=== PATIENT | female | born 1995 | race Caucasian/White ===

== ENCOUNTER 2016-07-31 00:50 | Inpatient (IN) | payer MEDICAID ==
[~2016-07-31] VITALS: Ht 172.7 cm; Wt 78.4 kg
[2016-07-31] VITALS (16 sets, daily range): BP systolic 104–123; BP diastolic 53–80; PULSE 74–106; RESP 12–25; Ht 172.7 cm; Wt 78.4 kg
[2016-07-31] MEDS ORDERED: SOD CHLORIDE 0.9% 1,000 ML IV STA (02:35)
--- NOTE | 2016-07-31 03:07 | ERD ---
ER Documentation Chief Complaint Date/Time DATE: 07/31/16 TIME: 03:04 Chief Complaint Pt reports took oral pills 4 weeks ago and has going through 1 pad an hour HPI 20-year-old female presents here in emergency department for complaints of vaginal bleeding for almost 4 weeks now, patient took oral pills on July 01, was bleeding heavily afterwards, patient was seen again in [facility], another pill was given to help with removal of further of the clots , she took the medication, she was not bleeding afterwards, she followed up with excellence consultant, patient was told continuously have more retained products, she was recommended to have dilatation and curettage, when following up in another gynecology clinic that she was referred to, the excellence consultant specialist told her that she does not need dilatation and curettage, patient continues to have the bleeding, soaks 10 pads per day, one per hour. Patient is complaining of pelvic pain and cramping pain, for/10 scale, accompanying the vaginal bleeding, patient feels weak and dizzy at times. ROS All systems reviewed and are negative except as per history of present illness. Medications Home Meds Reported Medications [none] Unknown Strength No Conflict Check 07/31/16 Allergies Allergies: Coded Allergies: No Known Allergy (Unverified , 07/31/16) PMhx/Soc Medical and Surgical Hx: pt denies Medical Hx, pt denies Surgical Hx History of Surgery: No Anesthesia Reaction: No Hx Neurological Disorder: No Hx Respiratory Disorders: No Hx Cardiac Disorders: No Hx Psychiatric Problems: No Hx Miscellaneous Medical Probl: No Hx Alcohol Use: No Hx Substance Use: No Hx Tobacco Use: No Smoking Status: Never smoker FmHx Family History: No coronary disease, No diabetes, No other Physical Exam Vitals Vital Signs Date Time Temp Pulse Resp B/P Pulse Ox O2 Delivery O2 Flow Rate FiO2 07/31/16 00:53 98.1 94 18 125/58 100 Physical Exam GENERAL: The patient is well developed and appropriate for usual state of health, in no apparent distress. Patient is pale. CHEST: Clear to auscultation bilaterally. There are no rales, wheezes or rhonchi. HEART: Regular rate and rhythm. No murmurs, clicks, rubs or gallops. No S3 or S4. ABDOMEN: Soft, nontender and nondistended. Good bowel sounds. No rebound or guarding. No gross peritonitis. No gross organomegaly or masses. No Johns sign or McBurney point tenderness. BACK: No midline or flank tenderness. EXTREMITIES: Equal pulses bilaterally. There is no peripheral clubbing, cyanosis or edema. No focal swelling or erythema. Full range of motion. Grossly neurovascularly intact. NEURO: Alert and oriented. Cranial nerves 2-12 intact. Motor strength in all 4 extremities with 5/5 strength. Sensation grossly intact. Normal speech and gait. SKIN: There is no apparent rash or petechia. The skin is warm and dry. HEMATOLOGIC AND LYMPHATIC: There is no evidence of excessive bruising or lymphedema. No gross cervical, axillary, or inguinal lymphadenopathy. Result Diagram: 07/31/163 Results 24 hrs Laboratory Tests Test 07/31/16 03:13 Activated Partial Thromboplast Time 27.2Sec Basophils # Pending Basophils % Pending Beta HCG, Quantitative 2367.1mIU/ml Eosinophils # Pending Eosinophils % Pending Hematocrit 20.5% Hemoglobin 6.9g/dl INR International Normalized Ratio 1.05 Lymphocytes # Pending Lymphocytes % Pending Mean Corpuscular Hemoglobin 29.7pg Mean Corpuscular Hemoglobin Concent 33.7g/dl Mean Corpuscular Volume 88.7fl Mean Platelet Volume 11.1fl Monocytes # Pending Monocytes % Pending Neutrophils # Pending Neutrophils % Pending Nucleated Red Blood Cells # Pending Nucleated Red Blood Cells % Pending Platelet Count 37356^3/UL Prothrombin Time 13.7Sec Prothrombin Time Ratio 1.1 Red Blood Count 2.3110^6/ul Red Cell Distribution Width 12.1% Urine Bacteria FEW Urine Bilirubin NEGATIVE Urine Clarity CLOUDY Urine Color YELLOW Urine Glucose NEGATIVE% Urine Hemoglobin 3+ Urine Ketones NEGATIVE Urine Leukocyte Esterase 2+ Urine Microscopic RBC >50/HPF Urine Microscopic WBC >50/HPF Urine Mucus FEW Urine Nitrite NEGATIVE Urine Specific [place] >=1.030 Urine Squamous Epithelial Cells MANY Urine Total Protein 1+ Urine Urobilinogen 1.0 E.U./dL Urine pH 5.5 White Blood Count 8.510^3/ul Current Medications Medications (Trade) Dose Ordered Sig/Berkley Route PRN Reason Start Time Stop Time Status Last Admin Dose Admin Sodium Chloride (NS) 1,000 ml @ 1,000 mls/hr Q1H STAT IV 07/31/16 02:35 07/31/16 03:34 DC 07/31/16 03:17 Normal saline IV bolus was given here in emergency department for rehydration, patient tolerated IV fluids. PROCEDURE: Pelvic ultrasound, limited. CLINICAL INDICATION: Vaginal bleeding. TECHNIQUE: Multiple sonographic images of the pelvis were obtained utilizing a transabdominal technique. The images were reviewed on a PACS workstation. COMPARISON: None. FINDINGS: The uterus is visualized and measures 8.2 x 4.3 x 5.6 cm. No abnormal uterine mass is identified. The endometrial echo complex is thickened and heterogeneous measuring 1.8 cm with color-flow suggestive of retained products. There is no evidence for free fluid. The right ovary has a normal echotexture and measures 3.5 x 1.6 x 2.6 cm. The left ovary has a normal echotexture and measures 3.0 x 1.6 x 1.9 cm. There is normal flow to both ovaries. No adnexal masses are identified. IMPRESSION: Thickened and heterogeneous endometrium with color-flow suggestive of retained products. Follow-up is recommended. .Blake Crane MD, MD Date Time Electronically viewed and signed by .Blake Crane MD, MD on 07/31/2016 03:19 .T/ CC: SINDHU RODAS NP I discussed this case with gynecology specialist, Dr. Guzman, with the patient case, will admit the patient, she ordered for type and cross and transfuse 1 unit of packed RBC, patient will be admitted to medical surgical floor for further management and treatment. Procedures/MDM Medical Decision Making: Patients vaginal bleeding is most likely consistent of the retained products of conception, patient has symptomatic anemia, will be treated with blood transfusion, further management and treatment is necessary, patient will be admitted to the hospital for this. Dr. Guzman accepted patient for this. Departure Diagnosis: Primary Impression: Retained products of conception Additional Impression: Symptomatic anemia Condition: Fair SINDHU RODAS NP Jul 31, 2016 03:07
--- NOTE | 2016-07-31 03:19 | RADRPT ---
PROCEDURE: Pelvic ultrasound, limited. CLINICAL INDICATION: Vaginal bleeding. TECHNIQUE: Multiple sonographic images of the pelvis were obtained utilizing a transabdominal stefano hnique. The images were reviewed on a PACS workstation. COMPARISON: None. FINDINGS: The uterus is visualized and measures 8.2 x 4.3 x 5.6 cm. No abnormal uterine mass is identified. T he endometrial echo complex is thickened and heterogeneous measuring 1.8 cm with color-flow suggesti ve of retained products. There is no evidence for free fluid. The right ovary has a normal echotexture and measures 3.5 x 1. 6 x 2.6 cm. The left ovary has a normal echotexture and measures 3.0 x 1.6 x 1.9 cm. There is norm al flow to both ovaries. No adnexal masses are identified. IMPRESSION: Thickened and heterogeneous endometrium with color-flow suggestive of retained products. Follow-up is recommended. .Blake Crane MD, MD Date Time Electronically viewed and signed by .Blake Crane MD, on 07/31/2016 03:19 .T/
[2016-07-31 03:29] LABS: ADD UMIC YES; URINE BILIRUBIN (Dip) NEGATIVE (NEGATIVE); URINE BLOOD (Dip) 3+ (NEGATIVE); URINE COLOR YELLOW (YELLOW); URINE GLUCOSE (Dip) NEGATIVE (NEGATIVE); URINE KETONES (Dip) NEGATIVE (NEGATIVE); URINE NITRITE (Dip) NEGATIVE (NEGATIVE); URINE TOTAL PROTEIN (Dip) 1+ (NEGATIVE); URINE UROBILINOGEN (Dip) 1.0 E.U./dL (0.1-1.0)
[2016-07-31 03:41] LABS: SQUAMOUS EPITHELIAL CELL,UR MANY; URINE LEUKOCYTE ESTERASE (Dip) 2+ (NEGATIVE); URINE RBCS >50 /HPF (0)
[2016-07-31 03:42] LABS: BACTERIA,URINE FEW; MUCUS,URINE FEW
[2016-07-31 04:28] LABS: INR 1.05; PARTIAL THROMBOPLASTIN TIME 27.2 Sec (25.0-35.0); PROTIME 13.7 Sec (12.2-14.2); PT RATIO 1.1
[2016-07-31 04:41] LABS: RED BLOOD COUNT 2.31 10^6/ul (4.20-5.40)
[2016-07-31 04:44] LABS: HEMATOCRIT 20.5 % (37.0-47.0); HEMOGLOBIN 6.9 g/dl (12.0-16.0); MEAN CORPUSCULAR HEMOGLOBIN 29.7 pg (29.0-33.0); MEAN CORPUSCULAR HGB CONC 33.7 g/dl (32.0-37.0); MEAN CORPUSCULAR VOLUME 88.7 fl (72.0-104.0); MEAN PLATELET VOLUME 11.1 fl (7.4-10.4); PLATELET COUNT 273 10^3/UL (140-440); RED CELL DISTRIBUTION WIDTH 12.1 % (11.5-14.5)
[2016-07-31] MEDS ORDERED: CEFAZOLIN 1 GM INJ ONE (07:00)
[2016-07-31 09:00] LABS: MONOCYTE # 0.2 10^3/ul (0.3-0.9); NEUTROPHIL # 6.4 10^3/ul (1.6-7.5)
[2016-07-31 09:04] LABS: POLYCHROMASIA 1+
[2016-07-31] MEDS ORDERED: CEFAZOLIN 2 GM/50 ML (PMX) 50 ML IVPB ONE (10:00)
[2016-07-31] MEDS ORDERED: LACTATED RINGER'S 1,000 ML IV SCH (10:00)
[2016-07-31] MEDS ORDERED: MIDAZOLAM 1 MG/ML 2 ML INJ ONE (12:55)
[2016-07-31] MEDS ORDERED: PROPOFOL 20 ML ONE (12:55)
[2016-07-31] MEDS ORDERED: FENTAnyl 50 MCG/ML VIAL ONE (12:56)
--- NOTE | 2016-07-31 13:07 | PREOPHP ---
DATE OF ADMISSION: 07/31/2016 INDICATIONS: The patient is a 20-year-old G1, P0, whose last menstrual period was approximately 8 w eeks ago. This patient is status post medical on 07/01/2016. On 07/08/2016, the patient re turns complaining of increased vaginal bleeding for the last four weeks, soaking one pad per hour an d complaining of dizziness and tiredness. PAST MEDICAL HISTORY: None. PAST SURGICAL HISTORY: None. MEDICATIONS: None. PHYSICAL EXAMINATION: VITAL SIGNS: Stable. HEART: Heart regular rhythm. CHEST: Clear to auscultation bilaterally. ABDOMEN: Soft, nontender. No rebound or guarding. PELVIC: Cervical exam done with some minimal bleeding noted in the vagina. IMAGING: Shows thickened endometrium consistent with retained products of conception. LABORATORY: Hemoglobin is 6.9. HCG is 2300. Coags are within normal limits. Blood type is A positi ve. ASSESSMENT: ____ post medical with retained products of conception. Patient will be conse nted for dilatation and curettage. Risks and benefits discussed. The risk of infection, bleeding, damage to organs, possibility of blo od transfusion all discussed with the patient. Patient understands and consents to procedure. Dictated By: MERCEDEZ PACHECO MD /NTS Conf#: [id number] DID#: [id number]
[2016-07-31] MEDS ORDERED: METOCLOPRAMIDE 10 MG INJ ONE (13:23)
[2016-07-31] MEDS ORDERED: ONDANSETRON 4 MG INJ ONE (13:23)
[2016-07-31] MEDS ORDERED: DEXAMETHASONE 4 MG/ML 1 ML INJ ONE (13:24)
[2016-07-31] MEDS ORDERED: KETOROLAC 30 MG INJ ONE (13:24)
[2016-07-31] MEDS ORDERED: ALBUMIN HUMAN 5% 250 ML IV PRN (13:30)
[2016-07-31] MEDS ORDERED: ONDANSETRON 4 MG INJ IV PRN (13:30)
[2016-07-31] MEDS ORDERED: DIPHENHYDRAMINE 50 MG INJ IV PRN (13:30)
[2016-07-31] MEDS ORDERED: HYDROmorphONE (0.2 MG/ML) 10ML SYG IV PRN ×3 (13:30)
[2016-07-31] MEDS ORDERED: MEPERIDINE 25 MG INJ IV PRN (13:30)
[2016-07-31] MEDS ORDERED: morphine (1 MG/ML) 10ML SYRINGE IV PRN ×3 (13:30)
[2016-07-31] MEDS ORDERED: EPHEDrine SULFATE 50 MG/5 ML SYG IV PRN (13:30)
[2016-07-31] MEDS ORDERED: HYDROCODONE/APAP (5/325) TAB PO PRN ×2 (14:00)
[2016-07-31] MEDS ORDERED: IBUPROFEN 600 MG TAB PO PRN (14:00)
[2016-07-31] MEDS: LACTATED RINGER'S 1,000 ML IV SCH ×2 (14:00→22:00)
--- NOTE | 2016-07-31 16:14 | OPR ---
DATE OF OPERATION: 07/31/2016 PREOPERATIVE DIAGNOSES: Incomplete spontaneous . POSTOPERATIVE DIAGNOSIS: Incomplete spontaneous . OPERATION PERFORMED: Dilation and curettage. SPECIMENS: Products of conception. COMPLICATIONS: None. ESTIMATED BLOOD LOSS: Minimal. INDICATIONS: The patient is a 20-year-old G1, P0 who presented to the emergency room complaining of vaginal bleeding. Patient had a medical therapeutic approximately a month ago but is the last 4 weeks has been bleeding. The patient had a hemoglobin of 6.9. Ultrasound showed probable re tained products of conception. At this point, the patient presented for a dilation and curettage. Risks and benefits discussed. The risk of infection, bleeding, damage to organs, possibility of blo od transfusion all discussed with the patient. Patient understood the risks and consented to the pr ocedure. DESCRIPTION OF PROCEDURE: The patient was taken to the operating room where general anesthesia was found to be adequate. Patient was then prepped, draped in normal sterile fashion. ID was confirmed . Smoot speculum placed in the vagina. The cervix was grasped with a ring forceps and the uterus was sounded to approximately 8 to 9 weeks in size. A gentle sharp curet was done. A size curved 8 -Iranian tip curet was placed inside and a suction D and C was done again. Next, another gentle jagdish p curettage was performed. Tissue was obtained. There was minimal bleeding. Uterus was firm. All lap and needle counts correct x2. Patient tolerated procedure well. Patient stable to recovery. Dictated By: MERCEDEZ PACHECO MD /NTS Conf#: [id number] DID#: [id number]
[2016-07-31 17:08] LABS: WHITE BLOOD COUNT 8.5 10^3/ul (4.8-10.8)
[2016-07-31 18:23] LABS: EOSINOPHILS % 0.1 % (0.0-7.0); HEMATOCRIT 23.4 % (37.0-47.0); HEMOGLOBIN 7.9 g/dl (12.0-16.0); LYMPHOCYTES # 0.7 10^3/ul (0.8-2.9); MEAN CORPUSCULAR HEMOGLOBIN 29.5 pg (29.0-33.0); MEAN CORPUSCULAR VOLUME 86.7 fl (72.0-104.0); MEAN PLATELET VOLUME 8.6 fl (7.4-10.4); MONOCYTE # 0.1 10^3/ul (0.3-0.9); MONOCYTES % 1.3 % (0.0-13.0); NEUTROPHIL # 7.6 10^3/ul (1.6-7.5); NEUTROPHILS % 90.6 % (30.0-74.0); PLATELET COUNT 230 10^3/UL (140-440); RED CELL DISTRIBUTION WIDTH 12.9 % (11.5-14.5); UNCORRECTED WBC 8.4 10^3/ul (4.8-10.8); WHITE BLOOD COUNT 8.4 10^3/ul (4.8-10.8)
[2016-07-31 18:29] LABS: CONDITION 1; LH ANALYZER COMMENTS 1
[2016-07-31 19:25] LABS: PLATELET ESTIMATE PLT APPEAR ADEQUATE
[2016-08-01] VITALS: BP 115/59; PULSE 98; RESP 19
[2016-08-01 05:38] VITALS: BP 96/52; PULSE 77; RESP 18
[2016-08-01] MEDS: LACTATED RINGER'S 1,000 ML IV SCH ×2 (06:00→14:00)
[2016-08-01 06:57] LABS: BASOPHILS % 0.2 % (0.0-2.0); EOSINOPHILS % 0.1 % (0.0-7.0); HEMATOCRIT 19.5 % (37.0-47.0); LYMPHOCYTES # 1.4 10^3/ul (0.8-2.9); LYMPHOCYTES % 13.9 % (18.0-55.0); MEAN CORPUSCULAR HEMOGLOBIN 29.5 pg (29.0-33.0); MEAN CORPUSCULAR HGB CONC 33.7 g/dl (32.0-37.0); MEAN CORPUSCULAR VOLUME 87.7 fl (72.0-104.0); MEAN PLATELET VOLUME 9.4 fl (7.4-10.4); MONOCYTE # 0.6 10^3/ul (0.3-0.9); MONOCYTES % 5.7 % (0.0-13.0); NEUTROPHIL # 8.3 10^3/ul (1.6-7.5); NEUTROPHILS % 80.1 % (30.0-74.0); PLATELET COUNT 212 10^3/UL (140-440); RED BLOOD COUNT 2.23 10^6/ul (4.20-5.40); RED CELL DISTRIBUTION WIDTH 12.5 % (11.5-14.5); UNCORRECTED WBC 10.4 10^3/ul (4.8-10.8); WHITE BLOOD COUNT 10.4 10^3/ul (4.8-10.8)
[2016-08-01 07:31] LABS: CONDITION 1; LH ANALYZER COMMENTS 1
[2016-08-01 07:33] LABS: HEMOGLOBIN 6.6 g/dl (12.0-16.0)
[2016-08-01 07:49] VITALS: BP 96/53; RESP 15
--- NOTE | 2016-08-01 10:46 | DS ---
Date/Time of Note Date/Time of Note DATE: 08/01/16 TIME: 10:35 Discharge Summary Admission/Discharge Info Admit Date/Time Jul 31, 2016 at 04:53 Discharge Date/Time August 01, 2016 Discharge summary This patient is a 20 years old 1 para 0 who was about 8 weeks and about 4 weeks ago she had a therapeutic in a clinic. But she continue having vaginal bleeding every day for 4 weeks post medical . She came in emergency room or [facility] yesterday due to have heavy bleeding. Ultrasound showed thickening of endometrial structure. In the emergency room her hemoglobin was 6.9. Due to continuation of the vaginal bleeding she was taken to the operating room and a dilatation and curettage was performed. On the first day of post D&C which is today her hemoglobin n was 6.7 she already received 1 unit of packed . We will give her another unit of packed cell and check her H&H .If the result is satisfactory hemoglobin above 7 we will discharge her today. A prescription is written for ferrous sulfate 325 mg tablets to be taken twice a day. And to continue post op care with her pie chef. On exam today her vital signs are stable. Abdomen is soft. No pelvic tenderness. As I mentioned we will wait for the result of the H&H bofore discharging her. End of dictation thank you Laboratory Tests Test 07/31/16 17:55 08/01/16 06:09 Basophils # 0.010^3/ul 0.010^3/ul Basophils % 0.0% 0.2% Blood Morphology Comment Differential Comment AUTO w/SCAN Eosinophils # 0.010^3/ul 0.010^3/ul Eosinophils % 0.1% 0.1% Hematocrit 23.4% 19.5% Hemoglobin 7.9g/dl 6.6g/dl Lymphocytes # 0.710^3/ul 1.410^3/ul Lymphocytes % 8.0% 13.9% Mean Corpuscular Hemoglobin 29.5pg 29.5pg Mean Corpuscular Hemoglobin Concent 34.0g/dl 33.7g/dl Mean Corpuscular Volume 86.7fl 87.7fl Mean Platelet Volume 8.6fl 9.4fl Monocytes # 0.110^3/ul 0.610^3/ul Monocytes % 1.3% 5.7% Neutrophils # 7.610^3/ul 8.310^3/ul Neutrophils % 90.6% 80.1% Nucleated Red Blood Cells # 0.010^3/ul 0.010^3/ul Nucleated Red Blood Cells % 0.0/100WBC 0.0/100WBC Platelet Count 86917^3/UL 98510^3/UL Platelet Estimate PLT APPEAR ADEQUATE Red Blood Count 2.7010^6/ul 2.2310^6/ul Red Cell Distribution Width 12.9% 12.5% White Blood Count 8.410^3/ul 10.410^3/ul Current Medications Medications (Trade) Dose Ordered Sig/Berkley Route PRN Reason Start Time Stop Time Status Last Admin Dose Admin Sodium Chloride 1,000 ml @ 1,000 mls/hr Q1H STAT IV 07/31/16 02:35 07/31/16 03:34 DC 07/31/16 03:17 Lactated Ringer's 1,000 ml @ 125 mls/hr Q8H IV 07/31/16 10:00 07/31/16 13:58 DC 07/31/16 11:06 Cefazolin Sodium/ Dextrose (Ancef 2 Gm/50 ml (Pmx)) 50 ml @ 100 mls/hr ONCE ONCE IVPB 07/31/16 10:00 07/31/16 10:29 DC Morphine Sulfate (morphine (REC)) 2 mg PACU ORDER PRN IV MILD PAIN LEVEL 1-3 07/31/16 13:30 07/31/16 18:00 DC 07/31/16 14:15 Morphine Sulfate (morphine (REC)) 4 mg PACU ORDER PRN IV MODERATE PAIN LEVEL 4-6 07/31/16 13:30 07/31/16 18:00 DC Morphine Sulfate (morphine (REC)) 6 mg PACU ORDER PRN IV SEVERE PAIN LEVEL 7-10 07/31/16 13:30 07/31/16 18:00 DC Hydromorphone HCl (Dilaudid (Rec)) 0.2 mg PACU ORDER PRN IV MILD PAIN LEVEL 1-3 07/31/16 13:30 07/31/16 18:00 DC Hydromorphone HCl (Dilaudid (Rec)) 0.4 mg PACU ORDER PRN IV MODERATE PAIN LEVEL 4-6 07/31/16 13:30 07/31/16 18:00 DC Hydromorphone HCl (Dilaudid (Rec)) 0.6 mg PACU ORDER PRN IV SEVERE PAIN LEVEL 7-10 07/31/16 13:30 07/31/16 18:00 DC Ondansetron HCl (Zofran Inj) 4 mg PACU ORDER PRN IV NAUSEA AND/OR VOMITING 07/31/16 13:30 07/31/16 18:00 DC 07/31/16 14:15 Ephedrine Sulfate 5 mg 5 mg PACU ORDER PRN IV MAP LESS THAN 60 07/31/16 13:30 07/31/16 18:00 DC Albumin Human 250 ml @ 750 mls/hr PACU ORDER PRN IV SBP LESS THAN 90 07/31/16 13:30 07/31/16 18:00 DC Meperidine HCl (Demerol) 25 mg PACU ORDER PRN IV POST-OP RIGORS 07/31/16 13:30 07/31/16 18:00 DC 07/31/16 14:14 Diphenhydramine HCl 25 mg 25 mg PACU ORDER PRN IV PRURITUS 07/31/16 13:30 07/31/16 18:00 DC Lactated Ringer's (Lr) 1,000 ml @ 125 mls/hr Q8H IV 07/31/16 14:00 Ibuprofen (Motrin) 600 mg Q6H PRN PO PAIN 07/31/16 14:00 Acetaminophen/ Hydrocodone Bitart (Lamona (5/325)) 1 tab Q4H PRN PO PAIN 07/31/16 14:00 Acetaminophen/ Hydrocodone Bitart 2 tab 2 tab Q4H PRN PO PAIN 07/31/16 14:00 Propofol (Diprivan) 20 ml @ ud STK-MED ONCE .ROUTE 07/31/16 12:55 07/31/16 20:05 DC Midazolam HCl (Versed) 2 mg STK-MED ONCE .ROUTE 07/31/16 12:55 07/31/16 20:05 DC Fentanyl (Sublimaze) 100 mcg STK-MED ONCE .ROUTE 07/31/16 12:56 07/31/16 20:05 DC Ondansetron HCl (Zofran Inj) 4 mg STK-MED ONCE .ROUTE 07/31/16 13:23 07/31/16 20:06 DC Metoclopramide HCl (Reglan) 10 mg STK-MED ONCE .ROUTE 07/31/16 13:23 07/31/16 20:06 DC Ketorolac Tromethamine (Toradol) 30 mg STK-MED ONCE .ROUTE 07/31/16 13:24 07/31/16 20:06 DC Dexamethasone (Decadron) 4 mg STK-MED ONCE .ROUTE 07/31/16 13:24 07/31/16 20:06 DC Final Diagnosis Final diagnosis. Post medical retained products of conception. Vaginal bleeding and secondary anemia Hospital Course Dilatation and curettage Home Meds Discontinued Reported Medications [none] Unknown Strength No Conflict Check 07/31/16 Pending Labs Laboratory Tests Test 07/31/16 17:55 08/01/16 06:09 Basophils # 0.010^3/ul (0.0-0.1) 0.010^3/ul (0.0-0.1) Basophils % 0.0% (0.0-2.0) 0.2% (0.0-2.0) Blood Morphology Comment Differential Comment AUTO w/SCAN Eosinophils # 0.010^3/ul (0.0-0.5) 0.010^3/ul (0.0-0.5) Eosinophils % 0.1% (0.0-7.0) 0.1% (0.0-7.0) Hematocrit 23.4% (37.0-47.0) 19.5% (37.0-47.0) Hemoglobin 7.9g/dl (12.0-16.0) 6.6g/dl (12.0-16.0) Lymphocytes # 0.710^3/ul (0.8-2.9) 1.410^3/ul (0.8-2.9) Lymphocytes % 8.0% (18.0-55.0) 13.9% (18.0-55.0) Mean Corpuscular Hemoglobin 29.5pg (29.0-33.0) 29.5pg (29.0-33.0) Mean Corpuscular Hemoglobin Concent 34.0g/dl (32.0-37.0) 33.7g/dl (32.0-37.0) Mean Corpuscular Volume 86.7fl (72.0-104.0) 87.7fl (72.0-104.0) Mean Platelet Volume 8.6fl (7.4-10.4) 9.4fl (7.4-10.4) Monocytes # 0.110^3/ul (0.3-0.9) 0.610^3/ul (0.3-0.9) Monocytes % 1.3% (0.0-13.0) 5.7% (0.0-13.0) Neutrophils # 7.610^3/ul (1.6-7.5) 8.310^3/ul (1.6-7.5) Neutrophils % 90.6% (30.0-74.0) 80.1% (30.0-74.0) Nucleated Red Blood Cells # 0.010^3/ul (0.0-0.0) 0.010^3/ul (0.0-0.0) Nucleated Red Blood Cells % 0.0/100WBC (0.0-0.0) 0.0/100WBC (0.0-0.0) Platelet Count 38905^3/UL (140-440) 87477^3/UL (140-440) Platelet Estimate PLT APPEAR ADEQUATE Red Blood Count 2.7010^6/ul (4.20-5.40) 2.2310^6/ul (4.20-5.40) Red Cell Distribution Width 12.9% (11.5-14.5) 12.5% (11.5-14.5) White Blood Count 8.410^3/ul (4.8-10.8) 10.410^3/ul (4.8-10.8) SHONA SLOAN MD Aug 01, 2016 10:45
[2016-08-01 15:25] LABS: HEMOGLOBIN 7.4 g/dl (12.0-16.0); MEAN CORPUSCULAR HEMOGLOBIN 29.2 pg (29.0-33.0); MEAN CORPUSCULAR HGB CONC 33.4 g/dl (32.0-37.0); MEAN CORPUSCULAR VOLUME 87.6 fl (72.0-104.0); MEAN PLATELET VOLUME 9.1 fl (7.4-10.4); PLATELET COUNT 193 10^3/UL (140-440); RED BLOOD COUNT 2.52 10^6/ul (4.20-5.40); RED CELL DISTRIBUTION WIDTH 12.9 % (11.5-14.5); UNCORRECTED WBC 8.5 10^3/ul (4.8-10.8); WHITE BLOOD COUNT 8.5 10^3/ul (4.8-10.8)
[2016-08-01 15:29] LABS: CONDITION 1; LH ANALYZER COMMENTS 1
[2016-08-01 16:47] LABS: EOSINOPHILS # 0.2 10^3/ul (0.0-0.5); LYMPHOCYTES # 2.7 10^3/ul (0.8-2.9); MONOCYTE # 0.3 10^3/ul (0.3-0.9); NEUTROPHIL # 5.3 10^3/ul (1.6-7.5)
== END 2016-08-01 17:04 | disposition home or self-care (01) | DRG 770 ==
LOC: FTE 00:50 → MS1 04:53
PROVIDERS: ADMIT Obstetrics & Gynecology; ATTEND Obstetrics & Gynecology
PROC: 30233N1 Transfusion of Nonautologous Red Blood Cells into Peripheral Vein, Percutaneous Approach (ICD-10-PCS; 2016-07-31)
PROC: 10D17ZZ Extraction of Products of Conception, Retained, Via Natural or Artificial Opening (ICD-10-PCS; principal; 2016-07-31 14:00)
DX: O03.4 Incomplete spontaneous abortion without complication (principal); D64.9 Anemia, unspecified
CPT/HCPCS: 36415; 36430; 76856; 81001; 81003; 84702; 85025; 85610; 85730; 86850; 86900; 86901; 86920; 88305; J0690; J1100; J1885; J2175; J2250; J2270; J2405; J2765; J3010; J7030; J7120; P9016

== ENCOUNTER 2017-12-03 21:50 | Emergency (ER) | END 2017-12-04 01:35 | disposition home or self-care (01) ==

== ENCOUNTER 2018-09-29 00:44 | Emergency (ER) | payer BC ==
[~2018-09-29] VITALS: Ht 172.7 cm; Wt 81.0 kg
[~2018-09-29 00:44] MED LIST: IBUP-1542 PO
[2018-09-29 00:47] VITALS: Ht 172.7 cm; Wt 81.0 kg
[2018-09-29] MEDS ORDERED: CEPH-443 PO (01:44)
[2018-09-29] MEDS ORDERED: METR500T PO (01:44)
--- NOTE | 2018-09-29 01:47 | ERD ---
ER Documentation Chief Complaint Chief Complaint painful/burning urination x 2 weeks, c/o pelvic pain HPI 22-year-old female presents with burning with urination for last 2 days. She has had some fishy smelling watery yellowish vaginal discharge for the last 2 weeks. It resolved for a few days when she had her menstrual period last week but returned. She denies abdominal pain, fevers, vomiting. She does have a new sexual partner but does not have any specific concerns for STDs. ROS All systems reviewed and are negative except as per history of present illness. Medications Home Meds Active Scripts Cephalexin* (Keflex*) 500 Mg Capsule, 500 MG PO QID for 5 Days, CAP Prov:KEENAN SORIANO MD 09/29/18 Metronidazole* (Flagyl*) 500 Mg Tablet, 500 MG PO BID for 5 Days, TAB Prov:KEENAN SORIANO MD 09/29/18 Ibuprofen* (Motrin*) 600 Mg Tab, 600 MG PO Q6, #30 TAB Prov:YUNG SOTO PA-C 12/04/17 Allergies Allergies: Coded Allergies: No Known Allergy (Unverified , 07/31/16) PMhx/Soc Medical and Surgical Hx: pt denies Medical Hx, pt denies Surgical Hx History of Surgery: No Anesthesia Reaction: No Hx Neurological Disorder: No Hx Respiratory Disorders: No Hx Cardiac Disorders: No Hx Psychiatric Problems: No Hx Miscellaneous Medical Probl: No Hx Alcohol Use: No Hx Substance Use: No Hx Tobacco Use: No Smoking Status: Never smoker FmHx Family History: No diabetes, No coronary disease, No other Physical Exam Vitals Vital Signs Date Temp Pulse Resp B/P (MAP) Pulse Ox O2 O2 Flow FiO2 Time Delivery Rate 09/29/18 97.9 73 18 129/75 98 00:47 (93) Physical Exam Const: No acute distress Head: Atraumatic Eyes: Normal Conjunctiva ENT: Normal External Ears, Nose and Mouth. Neck: Full range of motion. No meningismus. Resp: Clear to auscultation bilaterally Cardio: Regular rate and rhythm, no murmurs Abd: Soft, non tender, non distended. Normal bowel sounds Skin: No petechiae or rashes Back: No midline or flank tenderness Ext: No cyanosis, or edema Neur: Awake and alert Psych: Normal Mood and Affect Results 24 hrs Laboratory Tests Test 09/29/18 01:13 Urine Color YELLOW Urine Clarity SLIGHTLY CLOUDY Urine pH 5.0 Urine Specific [place] 1.027 Urine Ketones NEGATIVE mg/dL Urine Nitrite NEGATIVE mg/dL Urine Bilirubin NEGATIVE mg/dL Urine Urobilinogen NEGATIVE mg/dL Urine Leukocyte Esterase 1+ [place]/ul Urine Microscopic RBC 3 /HPF Urine Microscopic WBC 32 /HPF Urine Squamous Epithelial Cells MODERATE /HPF Urine Bacteria FEW /HPF Urine Mucus FEW /HPF Urine Hemoglobin NEGATIVE mg/dL Urine Glucose NEGATIVE mg/dL Urine Total Protein NEGATIVE mg/dl POC Beta HCG, Qualitative NEGATIVE Current Medications Medications Dose Sig/Berkley Start Time Status Last (Trade) Ordered Route PRN Stop Time Admin Dose Reason Admin Cephalexin 500 mg ONCE ONCE 09/29/18 UNV (Keflex) PO 02:00 09/29/18 02:01 200 mg ONCE ONCE 09/29/18 UNV Phenazopyridi PO 02:00 ne HCl 09/29/18 02:01 (Pyridium) Procedures/MDM Urine shows leukocyte esterase and white blood cells. Urine sent for gonorrhea chlamydia. hCG negative. Patient was given Keflex and Pyridium. Patient will be treated with Keflex for findings of an uncomplicated cystitis. We will treat empirically for vaginitis with Flagyl. She has no current signs or symptoms of abdominal pain, sepsis and doubt tubo-ovarian abscess. Patient is advised to return for fevers, vomiting, abdominal pain, or new worsening symptoms. The patient was stable with no new complaints during the ER course. Clinically, there is no current evidence to suggest meningitis, sepsis, acute abdomen, pneumonia, stroke, acute coronary syndrome, pulmonary embolism, aortic dissection or any other emergent condition appearing to require further evaluation or hospitalization. Patient counseled regarding my diagnostic impression and care plan. Prior to discharge all questions answered. Pt agrees with treatment plan and understands strict return precautions. Pt is instructed to follow up with primary care provider within 24-48 hours. Precautionary instructions provided including instructions to return to the ER if not improving or for any worsening or changing symptoms or concerns. Departure Diagnosis: Primary Impression: Genitourinary symptoms Condition: Stable Patient Instructions: Urinary Tract Infections in Women, Vaginal Infection: Understanding the Vaginal Environment Additional Instructions: Results for STD testing will return within a week usually. We will treat for urinary tract infection as well as vaginitis. Recheck for abdominal pain, fevers, vomiting, new worsening symptoms. Okay to continue Azo stat for burning and Tylenol for pain. KEENAN SORIANO MD Sep 29, 2018 01:47
[2018-09-29 01:50] VITALS: BP 120/77; PULSE 62; RESP 17
[2018-09-29] MEDS ORDERED: PHENAZOPYRIDINE 100 MG TAB PO ONE (02:00)
[2018-09-29] MEDS ORDERED: CEPHALEXIN 500 MG CAP PO ONE (02:00)
== END 2018-09-29 01:55 | disposition home or self-care (01) ==
LOC: FTE 00:44
DX: R10.2 Pelvic and perineal pain (principal)
CPT/HCPCS: 81001; 81025; 87591; 99283; Z7610